=== PATIENT | female | born 2000 | race Caucasian/White ===

== ENCOUNTER 2023-03-29 11:09 | Inpatient (IN) ==
[2023-03-29] MEDS ORDERED: SODIUM CHLORIDE 0.9% 1000ML 1,000 ML IV SCH (11:42)
--- NOTE | 2023-03-29 11:42 | Emergency Department Note ---
History of Present Illness General Chief complaint: Tachycardia Stated complaint: SOB,TACHYCARDIA, Time Seen by Provider: 03/29/23 11:22 History of Present Illness Maximum Pain Intensity: 3 Patient is a generally healthy 22-year-old female who presents emergency department for evaluation of shortness of breath, elevated heart rate, chest pressure and lightheadedness that started yesterday. Patient suffered a right knee injury about 3 months ago. She underwent surgical intervention on 02/12 about 6 weeks ago. She has been in a hinged knee brace with restricted range of motion and partial weightbearing on crutches since then. She has been in physical therapy, was at PT yesterday. She notes they did introduce some new exercises and some increased weightbearing. At the end of PT while she was putting on her brace, she had a sense that her heart was beating quickly, she felt a little short of breath and lightheaded, her vision went spotty but she did not frankly pass out. Since then she reports that her symptoms return anytime she exerts herself. When she rolls over in bed when she gets up and walks around her home, or even transferring from the wheelchair to the gurney, she states that the symptoms start. There are some mild chest pressure, but no andrew pain, she rated her discomfort a 3/10 in triage. She states that her symptoms are relieved with about 15 minutes of rest. She has been using Aleve/Tylenol for pain. She was not placed on any blood thinning medications including aspirin postsurgery. She denies any personal or family history of DVT or PE. She does not smoke, but does use a NuvaRing. Home Medications Medication Instructions Recorded Confirmed Type etonogestrel 0.12 mg-ethinyl 1 vag ring vaginal DIRECTED 03/29/23 03/29/23 History estradiol 0.015 mg/24 hr vaginal ring (NuvaRing) Allergies Allergy/AdvReac Type Severity Reaction Status Date / Time No Known Allergies Allergy Verified 03/29/23 11:34 Past Med/Surg History Medical History (Updated 03/29/23 @ 15:04 by Merle Mijares) Knee injury Surgical History (Updated 03/29/23 @ 15:04 by Merle Mijares) History of orthopedic surgery Right knee surgery 02/12/2023 Family History (Updated 03/29/23 @ 13:59 by Susu Douglas PA-C) Other Diabetes Social History (Updated 03/29/23 @ 13:59 by Susu Douglas PA-C) Smoking Status: Never smoker Hx Alcohol Use: Yes Alcohol Intake Frequency: 2-4 x/Month Hx Substance Use: No current occupational status: employed Feels Safe at Home: Yes Review of Systems A total of 10 systems reviewed and were otherwise negative Physical Exam Vital Signs Vital Signs - 24 hr 03/29/23 11:16 03/29/23 11:50 03/29/23 11:51 Temperature 36.8 C Temperature Source Temporal Artery Scan Pulse Rate 98 H 79 Pulse Rate [Apical] 79 Pulse Rate from SpO2 Sensor Pulse Rhythm Regular Regular Pulse Rhythm [Apical] Regular Pulse Strength [Apical] Normal Respiratory Rate 16 18 18 Respiratory Effort / Characteristics Non-Labored Spontaneous Non-Labored Spontaneous Respiratory Depth Normal Normal Respiratory Pattern Regular Blood Pressure 126/82 Blood Pressure [Left Arm] 138/81 Blood Pressure Mean 96 Blood Pressure Mean [Left Arm] 100 Blood Pressure Position [Left Arm] Sitting Pulse Oximetry 97 97 97 Oxygen Delivery Method Room Air Room Air Room Air Oxygen Flow Rate Sepsis Recent Fever Within 48 Hours No Sepsis New/Unexplained Change in Mental Status No Sepsis Action Taken by Nursing No Action Required 03/29/23 12:02 03/29/23 12:42 03/29/23 12:38 Temperature Temperature Source Pulse Rate 91 H 85 Pulse Rate [Apical] Pulse Rate from SpO2 Sensor 85 Pulse Rhythm Pulse Rhythm [Apical] Pulse Strength [Apical] Respiratory Rate 19 Respiratory Effort / Characteristics Respiratory Depth Respiratory Pattern Blood Pressure Blood Pressure [Left Arm] Blood Pressure Mean Blood Pressure Mean [Left Arm] Blood Pressure Position [Left Arm] Pulse Oximetry 98 99 Oxygen Delivery Method Room Air Oxygen Flow Rate 0 Sepsis Recent Fever Within 48 Hours Sepsis New/Unexplained Change in Mental Status Sepsis Action Taken by Nursing 03/29/23 12:40 03/29/23 12:54 03/29/23 13:00 Temperature Temperature Source Pulse Rate 87 88 85 Pulse Rate [Apical] Pulse Rate from SpO2 Sensor 90 89 87 Pulse Rhythm Pulse Rhythm [Apical] Pulse Strength [Apical] Respiratory Rate 16 21 21 Respiratory Effort / Characteristics Respiratory Depth Respiratory Pattern Blood Pressure Blood Pressure [Left Arm] Blood Pressure Mean Blood Pressure Mean [Left Arm] Blood Pressure Position [Left Arm] Pulse Oximetry 97 99 96 Oxygen Delivery Method Oxygen Flow Rate Sepsis Recent Fever Within 48 Hours Sepsis New/Unexplained Change in Mental Status Sepsis Action Taken by Nursing 03/29/23 13:02 03/29/23 13:02 Temperature Temperature Source Pulse Rate 79 Pulse Rate [Apical] Pulse Rate from SpO2 Sensor 80 Pulse Rhythm Pulse Rhythm [Apical] Pulse Strength [Apical] Respiratory Rate 21 Respiratory Effort / Characteristics Respiratory Depth Respiratory Pattern Blood Pressure 95/80 L Blood Pressure [Left Arm] Blood Pressure Mean 94 Blood Pressure Mean [Left Arm] Blood Pressure Position [Left Arm] Pulse Oximetry 97 Oxygen Delivery Method Oxygen Flow Rate Sepsis Recent Fever Within 48 Hours Sepsis New/Unexplained Change in Mental Status Sepsis Action Taken by Nursing CONSTITUTIONAL: Patient is a well-appearing 22-year-old female who is awake and alert and in no acute distress laying on the gurney. She has noted to be mildly tachycardic in the 90s. EYES: Pupils equal, round, reactive to light and accommodation. EOMs intact without nystagmus. Sclera are anicteric. ENT: Tympanic membranes intact, with normal landmarks. External canals are clear. Oral and nasopharynx are clear. Mucous membranes are moist, no lesions, tongue and gums appear normal. CARDIOVASCULAR: Mildly tachycardic rate, normal rhythm. No murmur appreciated. Peripheral pulses easy to palpable. RESPIRATORY: Breath sounds equal and clear to auscultation. Full and equal chest expansion without accessory muscle use or retractions. MUSCULOSKELETAL: Right lower extremity in a hinged knee brace. Well healed [facility] knee surgical scar without signs of infection. Knee swelling noted. Trace pitting edema noted in the right pretibial area. No calf tenderness bilaterally. INTEGUMENTARY: No lesions or rash, normal skin turgor. Course Course The patient was seen and assessed as above. External medical records are reviewed. She presents the emergency department for evaluation of elevated heart rate, lightheadedness and shortness of breath that started yesterday, in the setting of a recent surgery. She does use a NuvaRing. She was seen at a walk-in clinic in [place] and referred to the ED for concern for PE. Given her presentation, unable to rule her out using PERC or Wells criteria. Given this, did proceed immediately with a chest CT. IV lock was initiated and laboratory studies were collected. CBC with differential, CMP, coags, troponin and test were collected. Portable chest x-ray was performed. EKG was obtained. CTA of the chest was ordered. She was hydrated with a liter bolus of normal saline solution. Laboratory studies per my interpretation no leukocytosis, no anemia, no thrombocytopenia. Coags are normal. Electrolytes are without significant abnormality requiring correction. Renal functions are normal. Transaminases are not elevated. Troponin is elevated 929. test is negative. EKG per my interpretation notes a sinus rhythm with sinus arrhythmia at 93 bpm. No acute ischemic changes. No ectopy. No interval prolongation. No old EKGs available for review. CTA of the chest per my interpretation notes extensive bilateral pulmonary emboli beginning in the distal main pulmonary arteries and extending into the lobar, segmental and subsegmental branches. There is evidence for right heart strain. Chest x-ray per my interpretation is clear, no pneumothorax. Cardiac monitoring: An order was placed for continuous cardiac monitoring. The monitor shows a normal sinus rhythm in the 80s per my interpretation. All laboratory and diagnostic imaging studies were discussed with the patient. She appears to have provoked PEs in the setting of a NuvaRing and recent surgery. I do suspect she likely has or had a DVT, and discussed this with her. They may elect to image her as an inpatient. She is otherwise hemodynamically stable, she is not to pick neck or hypotensive or hypoxic. She is only mildly tachycardic, primarily with exertion. After review of the information above and other included data, I feel the patient requires admission. She was agreeable. Case reviewed with attending physician, Dr. Kendrick, specifically the CT scan report. BNP was ordered and she was started on a heparin drip. I did review the patient with the ED case worker for admission. [facility] and [facility]. BNP was normal. Differential diagnoses considered included acute myocardial infarction, acute coronary syndrome, myocarditis, pericarditis, pulmonary embolism, pneumonia, p neumothorax, cardiomyopathy, congestive heart failure, anemia, musculoskeletal, anxiety, costochondritis, among others. Administered Medications Heparin Sodium/Dextrose (Heparin Sodium/Dextrose) 25,000 units in 500 mls @ 26 mls/hr IV .[id number] [facility], [facility]; Protocol Stop: 04/28/23 12:59 Last Admin: 03/29/23 12:51 Dose: 1,300 units/hr, 26 mls/hr Documented By: PRIYA Co-signed By: ZION Discontinued Medications Heparin Sodium (Porcine) (Heparin Sod (Porcine) 1000 Unit/Ml) 6,000 units IV NOW ONE Stop: 03/29/23 13:01 Last Admin: 03/29/23 12:51 Dose: 6,000 units Documented By: PRIYA Co-signed By: ZION Sodium Chloride (Nss 1000ml) 1,000 mls @ 999 mls/hr IV .[id number] JULIO CESAR Stop: 03/29/23 12:42 Last Infusion: 03/29/23 12:46 Dose: 0 mls/hr Documented By: Admin: 03/29/23 11:50 Dose: 999 mls/hr Documented By: DIRK Ioversol (Ioversol 350 Mg 125ml Prefilled Syringe) 119 ml IV ONCE ONE Stop: 03/29/23 12:07 Last Admin: 03/29/23 11:58 Dose: 119 ml Documented By: SONA Medical Decision Making Differential Diagnosis See ED course. Medical Records Attestation: I reviewed the patient's medical records. Home Medications Current Medication List: was personally reviewed by me Laboratory Data Attestation: I reviewed the patient's lab results. 03/29/23 11:40 03/29/23 11:40 Lab Results 03/29/23 03/29/23 03/29/23 Range/Units 11:40 11:40 11:40 WBC 10.00 (4.8-10.8) K/ul RBC 4.92 (4.20-5.40) M/uL Hgb 14.8 (12.0-16.0) g/dl POC Hgb (12.0-16.0) g/dl Hct 43.3 (37.0-47.0) % POC Hct (37-47) % MCV 88.0 (80.0-100.0) fL MCH 30.1 (25.0-34.0) pg MCHC 34.2 (32.0-36.0) g/dL RDW Std Deviation 40.6 (36.4-46.3) fL RDW Coeff of Patrick 12.5 (11.5-14.5) % Plt Count 277 (130-400) K/uL MPV 10.7 (9.4-12.4) fL Immature Gran % (Auto) 0.3 % Neut % (Auto) 68.9 % Lymph % (Auto) 21.9 % [place] % (Auto) 6.7 % Eos % (Auto) 1.8 % Baso % (Auto) 0.4 % Neut # (Auto) 6.89 H (1.40-6.50) K/uL Lymph # (Auto) 2.19 (1.2-3.4) K/uL [place] # (Auto) 0.67 H (0.11-0.59) K/uL Eos # (Auto) 0.18 (0-0.50) K/uL Baso # (Auto) 0.04 (0-0.2) K/uL Immature Gran # (Auto) 0.03 (0.01-0.20) K/uL PT 10.5 (9.0-12.0) Seconds INR 1.0 (0.9-1.1) APTT 27.8 (21.0-31.0) Seconds PTT Ratio 1.0 POC Sodium (135-144) mmol/L Sodium (136-145) mmol/L POC Potassium (3.3-5.0) mmol/L Potassium (3.5-5.1) mmol/L POC Chloride (101-112) mmol/L Chloride (98-107) mmol/L Carbon Dioxide (21-32) mmol/L POC Total CO2 (24-31) mmol/L Anion Gap (3-11) POC Anion Gap (16-25) mmol/L POC BUN (7-18) mg/dl BUN (6-23) mg/dl Creatinine (0.6-1.2) mg/dl POC Creatinine (0.6-1.3) mg/dl Est Cr Clr Drug Dosing ml/min Est GFR ( Amer) ml/min Est GFR (Non-Af Amer) ml/min BUN/Creatinine Ratio (10-20) Glucose (70-99(Fasting)) mg/dl POC Glucose (other) (70-99) mg/dl Calcium (8.6-10.3) mg/dl POC Ioniz Calcium Lucy (1.12-1.32) mmol/l Total Bilirubin (0.2-1.0) mg/dl AST (13-39) U/L ALT (7-52) U/L Alkaline Phosphatase (34-104) U/L Troponin I High Sens (0-14) pg/ml Total Protein (6.0-8.3) gm/dl Albumin (3.4-5.0) gm/dl Globulin (2.5-4.0) gm/dl Albumin/Globulin Ratio (0.9-2) HCG, Qual Negative (Negative) 03/29/23 03/29/23 Range/Units 11:40 11:48 WBC (4.8-10.8) K/ul RBC (4.20-5.40) M/uL Hgb (12.0-16.0) g/dl POC Hgb 13.9 (12.0-16.0) g/dl Hct (37.0-47.0) % POC Hct 41 (37-47) % MCV (80.0-100.0) fL MCH (25.0-34.0) pg MCHC (32.0-36.0) g/dL RDW Std Deviation (36.4-46.3) fL RDW Coeff of Patrick (11.5-14.5) % Plt Count (130-400) K/uL MPV (9.4-12.4) fL Immature Gran % (Auto) % Neut % (Auto) % Lymph % (Auto) % [place] % (Auto) % Eos % (Auto) % Baso % (Auto) % Neut # (Auto) (1.40-6.50) K/uL Lymph # (Auto) (1.2-3.4) K/uL [place] # (Auto) (0.11-0.59) K/uL Eos # (Auto) (0-0.50) K/uL Baso # (Auto) (0-0.2) K/uL Immature Gran # (Auto) (0.01-0.20) K/uL PT (9.0-12.0) Seconds INR (0.9-1.1) APTT (21.0-31.0) Seconds PTT Ratio POC Sodium 139 (135-144) mmol/L Sodium 138 (136-145) mmol/L POC Potassium 4.0 (3.3-5.0) mmol/L Potassium 4.3 (3.5-5.1) mmol/L POC Chloride 104 (101-112) mmol/L Chloride 104 (98-107) mmol/L Carbon Dioxide 23 (21-32) mmol/L POC Total CO2 23 L (24-31) mmol/L Anion Gap 11 (3-11) POC Anion Gap 16.0 (16-25) mmol/L POC BUN 8 (7-18) mg/dl BUN 9 (6-23) mg/dl Creatinine 0.68 (0.6-1.2) mg/dl POC Creatinine 0.7 (0.6-1.3) mg/dl Est Cr Clr Drug Dosing 144.5 ml/min Est GFR ( Amer) 141.9 ml/min Est GFR (Non-Af Amer) 122.4 ml/min BUN/Creatinine Ratio 13.2 (10-20) Glucose 96 (70-99(Fasting)) mg/dl POC Glucose (other) 97 (70-99) mg/dl Calcium 9.8 (8.6-10.3) mg/dl POC Ioniz Calcium Lucy 1.16 (1.12-1.32) mmol/l Total Bilirubin 0.5 (0.2-1.0) mg/dl AST 21 (13-39) U/L ALT 19 (7-52) U/L Alkaline Phosphatase 68 (34-104) U/L Troponin I High Sens 929.3 H* (0-14) pg/ml Total Protein 7.8 (6.0-8.3) gm/dl Albumin 4.3 (3.4-5.0) gm/dl Globulin 3.5 (2.5-4.0) gm/dl Albumin/Globulin Ratio 1.2 (0.9-2) HCG, Qual (Negative) Imaging Data Attestation: I personally reviewed and interpreted this imaging study as follows: Radiologist's Impression: Chest CTA 03/29/23 11:35 CT ANGIOGRAM OF THE CHEST CLINICAL HISTORY: Dyspnea. Tachycardia. History of recent surgery. COMPARISON STUDY: No priors. TECHNIQUE: Following the IV administration of 119 cc of Optiray 320, CT angiogram of the chest was performed from the upper abdomen to the thoracic inlet utilizing the pulmonary embolus protocol. Images are reviewed in the axial, sagittal, and coronal planes. 3-D MIPS images are created and assessed. IV contrast was administered without complication. A dose lowering technique was utilized adhering to the principles of ALARA. CT DOSE: 587.57 mGy.cm FINDINGS: Thyroid: Imaged portions of the thyroid gland are normal in size and attenuation. Thoracic aorta: The thoracic aorta is normal in caliber and demonstrates variant 3-vessel arch anatomy. There is a bovine arch, and the left vertebral artery arises directly from the thoracic aorta. No dissection is seen. Pulmonary vasculature: The pulmonary trunk is normal in caliber. There is thrombus within the distal main pulmonary arteries bilaterally. This extends into all pulmonary lobar branches, in into segmental and subsegmental branches throughout both lungs. Heart: The heart is normal in size and without pericardial effusion. There is mild bowing of the interventricular septum suggestive of right heart strain. Lungs and pleural spaces: The lungs and pleural spaces are clear. The trachea and central airways are patent. Mediastinum: There is no mediastinal lymphadenopathy. Sun: Clear. Axillae: There is no axillary lymphadenopathy. Upper abdomen: Partially visualized upper abdominal viscera is within normal limits. Skeletal structures: No lytic or blastic bony lesions are seen. IMPRESSION: 1. Extensive bilateral pulmonary embolus as above with evidence of right heart strain. 2. There is no airspace consolidation or pleural effusion. ACT 112: Negative or not required by law. Electronically signed by: Johny Grimm M.D. 03/29/2023 12:17 PM Chest X-Ray 03/29/23 11:35 XR chest 1V portable CLINICAL HISTORY: Chest pain, nonspecific TECHNIQUE: Single frontal radiograph of the chest was obtained. Comparison: None available at the time of this dictation. FINDINGS: No lines and tubes are seen. The cardiomediastinal silhouette is normal. The lungs are clear. No evidence of pleural effusion or pneumothorax. IMPRESSION: No acute chest disease. ACT 112: Negative or not required by law. Electronically signed by: Samuel Manuel M.D. 03/29/2023 12:29 PM ECG Data Attestation: I personally reviewed and interpreted this ECG as follows: Indication: + chest pain and + palpitations Rate (beats per minute): 93 Rhythm: + sinus with SA ECG Intervals/blocks: no Prolonged QT ECG [place]: + Normal ECG ST segments: + Normal ST segments Comparison ECG Date: no prior available MDM Narrative See ED course. Impression & Plan Bilateral pulmonary embolism, Elevated troponin, Status post right knee surgery Discharge Plan Visit Data Chief Complaint: Tachycardia Stated Complaint: SOB,TACHYCARDIA, ED Provider: Cholo Kendrick ED Midlevel Provider: Merle Mijares Discharge Problem: Bilateral pulmonary embolism, Elevated troponin, Status post right knee surgery Patient Disposition: Admitted As Inpatient Discharge Instructions Interventions: ED Discharge Assessment Last Done: 03/29/23 14:05
[2023-03-29 11:56] LABS: Basophils # (auto) 0.04 K/uL (0-0.2); Basophils % (auto) 0.4 %; Eosinophils # (auto) 0.18 K/uL (0-0.50); Eosinophils % (auto) 1.8 %; Hematocrit (blood only) 43.3 % (37.0-47.0); Hemoglobin 14.8 g/dl (12.0-16.0); Immature Granulocytes # (auto) 0.03 K/uL (0.01-0.20); Immature Granulocytes % (auto) 0.3 %; Lymphocytes # (auto) 2.19 K/uL (1.2-3.4); Lymphocytes % (auto) 21.9 %; Mean Corpuscular Hemoglobin 30.1 pg (25.0-34.0); Mean Corpuscular Hgb Conc 34.2 g/dL (32.0-36.0); Mean Platelet Volume 10.7 fL (9.4-12.4); Monocytes # (auto) 0.67 K/uL (0.11-0.59); Monocytes % (auto) 6.7 %; Neutrophils # (auto) 6.89 K/uL (1.40-6.50); Neutrophils % (auto) 68.9 %; Platelet Count 277 K/uL (130-400); RDW Coefficient of Variation 12.5 % (11.5-14.5); RDW Standard Deviation 40.6 fL (36.4-46.3); Red Blood Count 4.92 M/uL (4.20-5.40)
[2023-03-29 12:01] LABS: iSTAT Creatinine 0.7 mg/dl (0.6-1.3); iSTAT Hemoglobin 13.9 g/dl (12.0-16.0); iSTAT Ionized Calcium 1.16 mmol/l (1.12-1.32)
[2023-03-29] MEDS ORDERED: IOVERSOL 350 MG 125mL Prefilled Syringe IV ONE (12:06)
[2023-03-29 12:14] LABS: Albumin Globulin Ratio 1.2 (0.9-2); Albumin Level 4.3 gm/dl (3.4-5.0); BUN Creatinine Ratio 13.2 (10-20); Bilirubin,Total 0.5 mg/dl (0.2-1.0); Calcium 9.8 mg/dl (8.6-10.3); Creatinine Clr Calc Pharmacy 144.5 ml/min; Est GFR (African American) 141.9 ml/min; Est GFR (Non-African American) 122.4 ml/min; Globulin 3.5 gm/dl (2.5-4.0); Potassium 4.3 mmol/L (3.5-5.1); Total Protein 7.8 gm/dl (6.0-8.3)
--- NOTE | 2023-03-29 12:18 | CT Scan Report ---
CT ANGIOGRAM OF THE CHEST CLINICAL HISTORY: Dyspnea. Tachycardia. History of recent surgery. COMPARISON STUDY: No priors. TECHNIQUE: Following the IV administration of 119 cc of Optiray 320, CT angiogram of the chest was pe rformed from the upper abdomen to the thoracic inlet utilizing the pulmonary embolus protocol. Images are reviewed in the axial, sagittal, and coronal planes. 3-D MIPS images are created and assessed. I V contrast was administered without complication. A dose lowering technique was utilized adhering to the principles of ALARA. CT DOSE: 587.57 mGy.cm FINDINGS: Thyroid: Imaged portions of the thyroid gland are normal in size and attenuation. Thoracic aorta: The thoracic aorta is normal in caliber and demonstrates variant 3-vessel arch anatom y. There is a bovine arch, and the left vertebral artery arises directly from the thoracic aorta. No dissection is seen. Pulmonary vasculature: The pulmonary trunk is normal in caliber. There is thrombus within the distal main pulmonary arteries bilaterally. This extends into all pulmonary lobar branches, in into segmenta l and subsegmental branches throughout both lungs. Heart: The heart is normal in size and without pericardial effusion. There is mild bowing of the inte rventricular septum suggestive of right heart strain. Lungs and pleural spaces: The lungs and pleural spaces are clear. The trachea and central airways are patent. Mediastinum: There is no mediastinal lymphadenopathy. Sun: Clear. Axillae: There is no axillary lymphadenopathy. Upper abdomen: Partially visualized upper abdominal viscera is within normal limits. Skeletal structures: No lytic or blastic bony lesions are seen. IMPRESSION: 1. Extensive bilateral pulmonary embolus as above with evidence of right heart strain. 2. There is no airspace consolidation or pleural effusion. ACT 112: Negative or not required by law. Electronically signed by: Johny Grimm M.D. 03/29/2023 12:17 PM
[2023-03-29 12:19] LABS: Pregnancy Test, Serum Negative (Negative)
[2023-03-29 12:25] LABS: Partial Thromboplastin Time 27.8 Seconds (21.0-31.0); Prothrombin Time 10.5 Seconds (9.0-12.0)
--- NOTE | 2023-03-29 12:30 | XRay Report ---
XR chest 1V portable CLINICAL HISTORY: Chest pain, nonspecific TECHNIQUE: Single frontal radiograph of the chest was obtained. Comparison: None available at the time of this dictation. FINDINGS: No lines and tubes are seen. The cardiomediastinal silhouette is normal. The lungs are clear. No evid ence of pleural effusion or pneumothorax. IMPRESSION: No acute chest disease. ACT 112: Negative or not required by law. Electronically signed by: Samuel Manuel M.D. 03/29/2023 12:29 PM
[2023-03-29] MEDS ORDERED: Heparin IV Adult Wt-Based Standard WITH Bolus Protocol IV STA (12:32)
[2023-03-29 12:39] LABS: Troponin I High Sensitivity 929.3 pg/ml (0-14)
[2023-03-29] MEDS ORDERED: HEPARIN SOD (PORCINE) 1000 UNIT/ML IV ONE ×2 (12:47→13:00)
[2023-03-29] MEDS ORDERED: HEPARIN SODIUM/DEXTROSE 25,000 UNITS/500 ML BAG IV SCH (13:00)
--- NOTE | 2023-03-29 13:17 | History & Physical Report ---
Date of Service March 29, 2023 Assessment & Plan (1) Pulmonary emboli: (2) Elevated troponin I level: (3) Knee injury: Plan Patient is a 22-year-old female with no significant known past medical history presents with shortness of breath and palpitations that started yesterday and was found to have extensive bilateral PEs. Bilateral PEs SOB, palpitations and pleuritic CP 2/2 provoked PEs following knee surgery 6 weeks ago Tachycardic with initial HR of 98, saturating at 98% on room air Initial HS troponin 929.3, no acute ST changes on EKG CTA chest with extensive bilateral pulmonary embolus as above with evidence of right heart strain Obtaining 2D echo, discussed [facility] cardiology service, started on IV heparin in ED will plans to transition to oral anticoagulant by time of discharge home Trend troponin, monitor on tele Recent knee surgery Has been partial weight bearing on R knee, history of surgical repair from injury 6 weeks ago with [facility] in [place] Fall precautions, PT/OT DVT Ppx: IV heparin Code status: FULL PCP: Chad ([facility]) Dispo: Admitted to PCU Patient seen in collaboration with Dr. Mcmullen. Please see addendum. History of Present Illness Chief Complaint: Shortness of breath Primary Care Provider: NO PCP Patient is a 22-year-old female with no significant known past medical history presents with shortness of breath and palpitations that started yesterday. Patient has recent history of a knee injury with surgical intervention approximately 6 weeks ago from [facility] in [place]. Has been on crutches with a knee brace and partial weightbearing status since then. Has not been taking any blood thinning medication postoperatively including aspirin. Uses a NuvaRing for control. Has been feeling okay until PT yesterday, when she noted a sense of palpitations, shortness of breath with associated lightheadedness, pre-syncope and some central chest pressure with inspiration. Denies any loss of consciousness. Symptoms are worse with exertion and improved with rest. Feels more short of breath lying flat than sitting up. Denies any history of DVT or PE. Does not believe there is any family history of coagulable disorders. Receives primary care in [place]. No fever, chills, headache, nausea, vomiting, abdominal pain, dysuria, diarrhea or constipation. Allergies Allergy/AdvReac Type Severity Reaction Status Date / Time No Known Allergies Allergy Verified 03/29/23 11:34 Home Medications Medication Instructions Recorded Confirmed Type etonogestrel 0.12 mg-ethinyl 1 vag ring vaginal DIRECTED 03/29/23 03/29/23 History estradiol 0.015 mg/24 hr vaginal ring (NuvaRing) Past Med/Surg History Medical History (Updated 03/29/23 @ 15:04 by Merle Mijares) Knee injury Surgical History (Updated 03/29/23 @ 15:04 by Merle Mijares) History of orthopedic surgery Right knee surgery 02/12/2023 Family History (Updated 03/29/23 @ 13:59 by Susu Douglas PA-C) Other Diabetes Social History (Updated 03/29/23 @ 13:59 by Susu Douglas PA-C) Smoking Status: Never smoker Hx Alcohol Use: Yes Alcohol type: hard liquor Alcohol Intake Frequency: 2-4 x/Month Hx Substance Use: No Preferred Language: [place]ene[place]in Communication Ability: Effective Web Page Designer Required: No Beliefs That Will Affect Care: None Current Living Situation: Significant Other current occupational status: employed Other Information That Helps Us Care for You: No Feels Safe at Home: Yes Safety Concerns: Feels Safe At This Time Assistive Devices: Crutches Review of Systems Review of Systems: At least ten systems reviewed and negative except as noted in the HPI. Physical Exam Physical Exam: General Appearance: WD/WN, vitals as above, NAD, sitting up in bed, pleasant, conversing easily Head: normocephalic, atraumatic Eyes: normal inspection, PERRL, conjunctivae normal, anicteric sclerae ENT: external ear and nose normal, oropharynx normal Neck: normal visual inspection, trachea midline, no thyromegaly Respiratory: normal respiratory effort, lungs clear to auscultation, no wheeze, rales, rhonchi. No accessory muscle use Cardiovascular: tachycardic rate, regular rhythm, no murmur, normal peripheral pulses, no BLE edema. Vessels: no JVD Chest: normal inspection of chest Abdomen/GI: normal bowel sounds, soft, nontender, no hepatosplenomegaly Extremities/Musculoskeletal: no cyanosis or clubbing, extremities motor strength 5/5. + R knee in brace Neurologic: PERRL, EOMI, accommodation nl, no face palsy, no dysarthria, CN's II-XI intact bilaterally and moves all extremities Psychiatric: A+Ox3, anxious Skin: no rashes, normal color, warm/dry Results & Data Results & Data Vital Signs (Past 12 Hours) Vital Signs Temp Pulse Pulse Resp BP BP Pulse Ox 03/29/23 12:42 91 H 03/29/23 12:02 98 03/29/23 11:51 79 18 138/81 97 03/29/23 11:50 79 18 97 03/29/23 11:16 36.8 C 98 H 16 126/82 97 O2 Del Method O2 Flow Rate 03/29/23 12:42 03/29/23 12:02 Room Air 0 03/29/23 11:51 Room Air 03/29/23 11:50 Room Air 03/29/23 11:16 Room Air Laboratory Results Short CBC 03/29/23 Range/Units 11:40 WBC 10.00 (4.8-10.8) K/ul Hgb 14.8 (12.0-16.0) g/dl Hct 43.3 (37.0-47.0) % Plt Count 277 (130-400) K/uL BMP 03/29/23 11:40 Sodium 138 Potassium 4.3 Chloride 104 Carbon Dioxide 23 BUN 9 Creatinine 0.68 Glucose 96 Calcium 9.8 Liver Function 03/29/23 Range/Units 11:40 Total Bilirubin 0.5 (0.2-1.0) mg/dl AST 21 (13-39) U/L ALT 19 (7-52) U/L Alkaline Phosphatase 68 (34-104) U/L Albumin 4.3 (3.4-5.0) gm/dl Diagnostic Findings Chest CTA 03/29/23 11:35 CT ANGIOGRAM OF THE CHEST CLINICAL HISTORY: Dyspnea. Tachycardia. History of recent surgery. COMPARISON STUDY: No priors. TECHNIQUE: Following the IV administration of 119 cc of Optiray 320, CT angiogram of the chest was performed from the upper abdomen to the thoracic inlet utilizing the pulmonary embolus protocol. Images are reviewed in the axial, sagittal, and coronal planes. 3-D MIPS images are created and assessed. IV contrast was administered without complication. A dose lowering technique was utilized adhering to the principles of ALARA. CT DOSE: 587.57 mGy.cm FINDINGS: Thyroid: Imaged portions of the thyroid gland are normal in size and attenuation. Thoracic aorta: The thoracic aorta is normal in caliber and demonstrates variant 3-vessel arch anatomy. There is a bovine arch, and the left vertebral artery arises directly from the thoracic aorta. No dissection is seen. Pulmonary vasculature: The pulmonary trunk is normal in caliber. There is thrombus within the distal main pulmonary arteries bilaterally. This extends into all pulmonary lobar branches, in into segmental and subsegmental branches throughout both lungs. Heart: The heart is normal in size and without pericardial effusion. There is mild bowing of the interventricular septum suggestive of right heart strain. Lungs and pleural spaces: The lungs and pleural spaces are clear. The trachea and central airways are patent. Mediastinum: There is no mediastinal lymphadenopathy. Sun: Clear. Axillae: There is no axillary lymphadenopathy. Upper abdomen: Partially visualized upper abdominal viscera is within normal limits. Skeletal structures: No lytic or blastic bony lesions are seen. IMPRESSION: 1. Extensive bilateral pulmonary embolus as above with evidence of right heart strain. 2. There is no airspace consolidation or pleural effusion. ACT 112: Negative or not required by law. Electronically signed by: Johny Grimm M.D. 03/29/2023 12:17 PM Chest X-Ray 03/29/23 11:35 XR chest 1V portable CLINICAL HISTORY: Chest pain, nonspecific TECHNIQUE: Single frontal radiograph of the chest was obtained. Comparison: None available at the time of this dictation. FINDINGS: No lines and tubes are seen. The cardiomediastinal silhouette is normal. The lungs are clear. No evidence of pleural effusion or pneumothorax. IMPRESSION: No acute chest disease. ACT 112: Negative or not required by law. Electronically signed by: Samuel Manuel M.D. 03/29/2023 12:29 PM ECG Additional Comments: EKG reviewed: Normal sinus rhythm with sinus arrhythmia Normal ECG No previous ECGs available Code Status & VTE Plan VTE Prophylaxis Plan VTE Prophylaxis will be ordered: Yes Supervising Physician Co-Signing Physician Notes Pt seen and examined by myself, Linda Mcmullen MD on the day of service. Care was coordinated with Susu Douglas PA-C. Please refer to her note for additional information. 22yoF with multiple PEs causing heart strain after recent orthopedic surgery on R knee. Presented with chest tightness, SOB. RRR, breath sounds slightly decreased bilaterally. Heparin drip, Cardiology consult- recommending transfer [place] [facility] [place] services specifically catheter directed thrombolysis or clot retrieval. Otherwise as above.
--- NOTE | 2023-03-29 13:39 | Cardiology Consultation ---
Date of Consultation March 29, 2023 Assessment & Plan (1) Pulmonary emboli: Plan Please refer to physician addendum for further information as well as full plan of care. Supervising Physician Co-Signing Physician Notes Attending Staff: Pt seen and examined with [facility] staff. Concur with observations and plans 22 yo woman presenting with chest and dyspnea Recent orthopedic surgery + control On presentation CT PE protocol Performed Images reviewed Extensive thrombus in proximal LPA/RPA RV dilated ECHO performed - RV dilated; + Faustin's sign Reviewed studies Significant clot burden - saddle equivalent On Heparin Thrombus may be linked to hormonal therapy vs underlying hypercoagulable state Tni 900+, BNP 76 Plans to connect with IR @ [facility] to see if patient would be a candidate for radhames ter-directed thrombolysis or clot retrieval Maksim Ocampo History of Present Illness Reason for Consultation: Pulmonary embolism with concern for right heart strain Requesting Physician: Kassandra reynoso History of Present Illness 22-year-old female without any pertinent past medical/cardiac history presented to [facility] emergency department due to an acute onset of chest pressure, shortness of breath, and palpitations while doing physical therapy. She also became lightheaded and near syncopal but did not pass out. States that she has never experienced the symptoms before. Recent history of a knee injury with surgical intervention approximately 6 weeks ago at [facility] [place]. On control with a NuvaRing. CTA of the chest showed bilateral pulmonary emboli with evidence of right heart strain (mild bowing of the interventricular septum) EKG showing normal sinus rhythm, 93 bpm. High-sensitivity troponin elevated at 923.3 Upon entrance into the room patient resting in bed with machine tool technology instructor at bedside obt aining images. She is accompanied by her boyfriend, Wilfredo. Currently she is feeling " okay". States that she is chest pain-free and dyspnea has improved. However, with speaking her breathing pattern does appear shallow. She is a non-smoker, no alcohol use. No illicit drug use. Denies any pertinent cardiac history including no history of ID, CVA, hypertension, rheumatic fever. Denies any history of hypercoagulability for herself or her family. Allergies Allergy/AdvReac Type Severity Reaction Status Date / Time No Known Allergies Allergy Verified 03/29/23 11:34 Home Medications Medication Instructions Recorded Confirmed Type etonogestrel 0.12 mg-ethinyl 1 vag ring vaginal DIRECTED 03/29/23 03/29/23 History estradiol 0.015 mg/24 hr vaginal ring (NuvaRing) Patient History Medical History (Updated 03/29/23 @ 14:01 by Susu Douglas PA-C) Knee injury Surgical History History of orthopedic surgery Right knee surgery 02/12/2023 Family History (Updated 03/29/23 @ 13:59 by Susu Douglas PA-C) Other Diabetes Social History (Updated 03/29/23 @ 13:59 by Susu Douglas PA-C) Smoking Status: Never smoker Hx Alcohol Use: Yes Alcohol Intake Frequency: 2-4 x/Month Hx Substance Use: No current occupational status: employed Feels Safe at Home: Yes Review of Systems Review of Systems: All systems reviewed & are unremarkable except as noted in HPI & below Physical Exam Physical Exam: Slightly overweight Mild dyspnea No elevation in JVP S1S2 - inc P2 2/6 systolic murmur CTA B on anterior exam Right leg in brace Right leg larger in girth than left Constitutional: WD/WN, vitals as above no acute distress Eyes: PERRL, conjunctivae normal, anicteric sclerae Neck: normal visual inspection and trachea midline Respiratory: normal respiratory effort, lungs clear to auscultation + abnormal respiratory pattern (Shallow breathing with speaking); no respiratory distress Cardiovascular: RRR, no murmur, no edema Heart Sounds: normal S1 and normal S2; no murmur Vessels: no JVD Extremities: no edema Gastrointestinal (Abdomen): normal bowel sounds, soft, nontender, no hepatosplenomegaly Skin: no rashes, warm and dry Psychiatric: A+Ox3, euthymic affect Results & Data Vital Signs (Past 12 Hours) Vital Signs Temp Pulse Pulse Resp BP BP Pulse Ox 03/29/23 12:42 91 H 03/29/23 12:02 98 03/29/23 11:51 79 18 138/81 97 03/29/23 11:50 79 18 97 03/29/23 11:16 36.8 C 98 H 16 126/82 97 O2 Del Method O2 Flow Rate 03/29/23 12:42 03/29/23 12:02 Room Air 0 03/29/23 11:51 Room Air 03/29/23 11:50 Room Air 03/29/23 11:16 Room Air Laboratory Results Cardiac Enzymes 03/29/23 Range/Units 11:40 AST 21 (13-39) U/L Troponin I High Sens 929.3 H* (0-14) pg/ml Coagulation 03/29/23 Range/Units 11:40 PT 10.5 (9.0-12.0) Seconds APTT 27.8 (21.0-31.0) Seconds CBC 03/29/23 Range/Units 11:40 WBC 10.00 (4.8-10.8) K/ul RBC 4.92 (4.20-5.40) M/uL Hgb 14.8 (12.0-16.0) g/dl Hct 43.3 (37.0-47.0) % Plt Count 277 (130-400) K/uL Neut # (Auto) 6.89 H (1.40-6.50) K/uL Lymph # (Auto) 2.19 (1.2-3.4) K/uL [place] # (Auto) 0.67 H (0.11-0.59) K/uL Eos # (Auto) 0.18 (0-0.50) K/uL Baso # (Auto) 0.04 (0-0.2) K/uL Comprehensive Metabolic Panel 03/29/23 Range/Units 11:40 Sodium 138 (136-145) mmol/L Potassium 4.3 (3.5-5.1) mmol/L Chloride 104 (98-107) mmol/L Carbon Dioxide 23 (21-32) mmol/L BUN 9 (6-23) mg/dl Creatinine 0.68 (0.6-1.2) mg/dl Glucose 96 (70-99(Fasting)) mg/dl Calcium 9.8 (8.6-10.3) mg/dl AST 21 (13-39) U/L ALT 19 (7-52) U/L Alkaline Phosphatase 68 (34-104) U/L Total Protein 7.8 (6.0-8.3) gm/dl Albumin 4.3 (3.4-5.0) gm/dl Intake and Output 03/28/23 03/29/23 03/29/23 22:59 06:59 14:59 Intake Total 1000 / 1000 Balance 1000 / 1000 Intake: IV 1000 / 1000 Sodium Chloride 0.9% 1000ML 1, 1000 / 1000 000 ml @ 999 mls/hr IV .Q1H1M [facility] Rx#:[id number] Other: Weight 90.4 kg Weight Measurement Method Built in [facility] Patient Weight 03/30/23 06:59 Weight 90.4 kg
[2023-03-29] MEDS ORDERED: ACETAMINOPHEN 325 MG TAB PO PRN (14:05)
--- NOTE | 2023-03-29 15:41 | Discharge Summary ---
Discharge Summary Date of Service March 29, 2023 Notes For Next Care Provider Extensive PEs with saddle equivalent burden, transfer to [facility] for IR intervention, likely candidate for catheter-directed thrombolysis or clot retrieval Medication Changes From Visit Continue IV heparin Admission HPI Per Admitting Provider Patient is a 22-year-old female with no significant known past medical history presents with shortness of breath and palpitations that started yesterday. Patient has recent history of a knee injury with surgical intervention approximately 6 weeks ago from [facility] in [place]. Has been on crutches with a knee brace and partial weightbearing status since then. Has not been taking any blood thinning medication postoperatively including aspirin. Uses a NuvaRing for control. Has been feeling okay until PT yesterday, when she noted a sense of palpitations, shortness of breath with associated lightheadedness, pre-syncope and some central chest pressure with inspiration. Denies any loss of consciousness. Symptoms are worse with exertion and improved with rest. Feels more short of breath lying flat than sitting up. Denies any history of DVT or PE. Does not believe there is any family history of coagulable disorders. Receives primary care in [place]. No fever, chills, headache, nausea, vomiting, abdominal pain, dysuria, diarrhea or constipation. Admission Exam Per Admitting Provider General Appearance: WD/WN, vitals as above, NAD, sitting up in bed, pleasant, conversing easily Head: normocephalic, atraumatic Eyes: normal inspection, PERRL, conjunctivae normal, anicteric sclerae ENT: external ear and nose normal, oropharynx normal Neck: normal visual inspection, trachea midline, no thyromegaly Respiratory: normal respiratory effort, lungs clear to auscultation, no wheeze, rales, rhonchi. No accessory muscle use Cardiovascular: tachycardic rate, regular rhythm, no murmur, normal peripheral pulses, no BLE edema. Vessels: no JVD Chest: normal inspection of chest Abdomen/GI: normal bowel sounds, soft, nontender, no hepatosplenomegaly Extremities/Musculoskeletal: no cyanosis or clubbing, extremities motor strength 5/5. + R knee in brace Neurologic: PERRL, EOMI, accommodation nl, no face palsy, no dysarthria, CN's II-XI intact bilaterally and moves all extremities Psychiatric: A+Ox3, anxious Skin: no rashes, normal color, warm/dry Principal Dx & Hospital Course #1 = Principal Diagnosis (1) Bilateral pulmonary embolism: (2) Elevated troponin I level: (3) Knee injury: Plan Patient is a 22-year-old female with no significant known past medical history presents with shortness of breath and palpitations that started yesterday and was found to have extensive bilateral PEs in setting of knee surgery 6 weeks ago without any VTE following. Is also on NuvaRing for control. Developed SOB, palpitations, pleuritic CP and pre-syncope during PT yesterday when starting to bear weight on R leg. Symptoms improve at rest and are exacerbated with movement and when lying flat. On initial presentation, patient tachycardic with initial HR of 98, saturating at 98% on room air. Initial HS troponin 929.3, no acute ST changes on EKG but CTA chest with extensive bilateral pulmonary embolus as above with evidence of right heart strain. Was started in IV heparin in the ED and 2D echo revealed mild dilation of RV. Cardiology discussed with [facility] IR given extensive clot burden on seen on imaging and feel that patient is a candidate for catheter-directed thrombolysis or clot retrieval. Will plan to transfer to [facility] for further management. Accepting physician in ICU. Current Inpatient Medications Acetaminophen (Acetaminophen 325 Mg Tab) 650 mg PO Q4H PRN PRN Reason: Pain or Fever Stop: 04/28/23 14:04 Heparin Sodium/Dextrose (Heparin Sodium/Dextrose) 25,000 units in 500 mls @ 26 mls/hr IV .[id number] [facility]; Protocol Stop: 04/28/23 12:59 Last Admin: 03/29/23 12:51 Dose: 1,300 units/hr, 26 mls/hr Discharge Exam General Appearance: WD/WN, vitals as above, NAD, sitting up in bed, pleasant, conversing easily Head: normocephalic, atraumatic Eyes: normal inspection, PERRL, conjunctivae normal, anicteric sclerae ENT: external ear and nose normal, oropharynx normal Neck: normal visual inspection, trachea midline, no thyromegaly Respiratory: normal respiratory effort, lungs clear to auscultation, no wheeze, rales, rhonchi. No accessory muscle use Cardiovascular: tachycardic rate, regular rhythm, no murmur, normal peripheral pulses, no BLE edema. Vessels: no JVD Chest: normal inspection of chest Abdomen/GI: normal bowel sounds, soft, nontender, no hepatosplenomegaly Extremities/Musculoskeletal: no cyanosis or clubbing, extremities motor strength 5/5. + R knee in brace Neurologic: PERRL, EOMI, accommodation nl, no face palsy, no dysarthria, CN's II-XI intact bilaterally and moves all extremities Psychiatric: A+Ox3, anxious Skin: no rashes, normal color, warm/dry Updated Medication List Medication Instructions Recorded Confirmed Type etonogestrel 0.12 mg-ethinyl 1 vag ring vaginal DIRECTED 03/29/23 03/29/23 History estradiol 0.015 mg/24 hr vaginal ring (NuvaRing) Hospital Stay Data Consultations 03/29/23 12:55 ED Decision to Admit Stat 03/29/23 13:09 Consult Cardiology Routine Diagnostic Imagining Performed 03/29/23 11:35 CT angio chest PE protocol Stat 03/29/23 14:38 US venous duplex leg [US venous doppler LE BI] Stat Pending Results Patient Have Any Pending Studies at Discharge: No Discharge Instructions Given to Patient (Per Discharging Provider) (1) Bilateral pulmonary embolism: (2) Elevated troponin I level: (3) Knee injury: Presented with shortness of breath and palpitations that started yesterday and was found to have extensive bilateral PEs in setting of knee surgery 6 weeks ago, + control. Tachycardic with initial HR of 98, saturating at 98% on room air. Initial HS troponin 929.3, no acute ST changes on EKG. CTA chest with extensive bilateral pulmonary embolus as above with evidence of right heart strain. Was started in IV heparin in the ED and 2D echo revealed mild dilation of RV. Cardiology discussed with [facility] IR given extensive clot burden on seen on imaging and feel that patient is a candidate for catheter-directed thrombolysis or clot retrieval. Transferring to [facility] for further management. Total Time Total Time Spent Total Time Spent (In Minutes): 60 Supervising Physician Co-Signing Physician Notes Pt seen and examined by myself, Linda Mcmullen MD on the day of service. Care was coordinated with Susu Douglas PA-C. Please refer to her note for additional information. 22yoF with multiple PEs causing heart strain after recent orthopedic surgery on R knee. Presented with chest tightness, SOB. RRR, breath sounds slightly decreased bilaterally. Heparin drip, Cardiology consult- recommending transfer to [facility] for IR services s pecifically catheter directed thrombolysis or clot retrieval. Otherwise as above
--- NOTE | 2023-03-29 17:01 | Ultrasound Report ---
ULTRASOUND BILATERAL LOWER EXTREMITY VENOUS CLINICAL HISTORY: Pulmonary embolus. COMPARISON STUDY: No priors. TECHNIQUE: Real-time, grayscale, and color Doppler sonography of the deep veins of the right and left lower extremity was performed from the inguinal crease to the calf. Compression and augmentation wer e utilized. FINDINGS: Right lower extremity: There is occlusive deep venous thrombosis in the right lower extremity. This e xtends from the distal superficial femoral vein, throughout the popliteal vein, and into the calf wit hin the peroneal and posterior tibial veins. The common femoral vein as well as the proximal to mid p ortions of the superficial femoral vein are patent and normally compressible. The greater saphenous v ein and the profunda femoris vein at the junction with the common femoral vein are clear. The anterio r tibial vein appears patent. Left lower extremity: There is no sonographic evidence of deep venous thrombosis in the left lower ex tremity. The common femoral, superficial femoral, and popliteal veins are patent and normally giorgio sible. The greater saphenous vein and the profunda femoris vein at the junction with the common femor al vein are clear. The visualized calf veins are patent. IMPRESSION: 1. Occlusive deep venous thrombosis in the right lower extremity extending from the distal superficia l femoral vein to the calf. 2. There is no sonographic evidence of deep venous thrombosis in the left lower extremity. ACT 112: Negative or not required by law. Electronically signed by: Johny Grimm M.D. 03/29/2023 5:00 PM
--- NOTE | 2023-03-29 17:02 | Electrocardiogram Report ---
Test Reason : Blood Pressure : / mmHG Vent. Rate : 093 BPM Atrial Rate : 093 BPM P-R Int : 120 ms QRS Dur : 070 ms QT Int : 366 ms P-R-T Axes : 051 -02 046 degrees QTc Int : 455 ms Normal sinus rhythm with sinus arrhythmia Normal ECG No previous ECGs available Confirmed by Tre Kerr ([id number]) on 03/29/2023 5:02:28 PM Referred By: Confirmed By:Allen Kerr
[2023-03-29] MEDS ORDERED: LORazepam 0.5 MG TAB PO STA (17:12)
== END 2023-03-29 17:38 | disposition short-term general hospital (02) | DRG 175 ==
LOC: ED 11:09 → EDINP 13:08 → 2S 15:05